=== PATIENT | male | born 1945 | race Caucasian/White ===

== ENCOUNTER → 2017-10-27 | Outpatient (CLI) | payer OTHER | END | disposition home or self-care (01) | LOC: ROC 10-19 14:32 | PROVIDERS: ATTEND Radiology Radiation Oncology | DX: Z08 Encounter for follow-up examination after completed treatment for malignant neoplasm (principal); C61 Malignant neoplasm of prostate; F17.210 Nicotine dependence, cigarettes, uncomplicated | CPT/HCPCS: 99215; G0463 ==

== ENCOUNTER → 2017-11-22 | Outpatient (CLI) | payer OTHER ==
[~2017-11-22] MED LIST: FENTANYL PF 100 MCG/2ML ONE; LIDOCAINE/PF 1%, 30ML ONE; MIDAZOLAM 1 MG/ML, 5ML ONE
== END | disposition home or self-care (01) ==
LOC: ROC 07:22
PROVIDERS: ATTEND Radiology Radiation Oncology
DX: C61 Malignant neoplasm of prostate (principal); N40.0 Benign prostatic hyperplasia without lower urinary tract symptoms
CPT/HCPCS: 76942; 77332; 99156; A4648; J2250; J3010; J3490

== ENCOUNTER → 2017-12-01 | Outpatient (CLI) | payer OTHER | END | disposition home or self-care (01) | LOC: CFH 12:29 → EDSTATUS 12:30 | PROVIDERS: ATTEND Radiology Radiation Oncology | DX: C61 Malignant neoplasm of prostate (principal) | CPT/HCPCS: 72195 ==